=== PATIENT | female | born 1960 | race Caucasian/White ===

== ENCOUNTER 2024-01-18 05:54 | Day surgery (SDC) | payer OTHER ==
[~2024-01-18] VITALS: Ht 157.5 cm; Wt 83.1 kg
[2024-01-18] MEDS ORDERED: ALBUTEROL SULFATE 2.5 MG/0.5 ML NEB SOLUTION NEB ONE (05:55)
[2024-01-18] MEDS ORDERED: LIDOCAINE 4% 50 ML SOLUTION TP ONE (05:55)
[2024-01-18] MEDS ORDERED: LIDOCAINE 2% 11 ML JELLY TP ONE (05:55)
[2024-01-18] MEDS ORDERED: BENZOCAINE 20% 50 MCG/SPRAY 57 GM TP ONE (05:55)
[2024-01-18] MEDS ORDERED: SODIUM CHLORIDE 0.9% 0 ML ONE (07:04)
[2024-01-18] MEDS ORDERED: FentaNYL CITRATE PF 100 MCG/2 ML VIAL ONE (07:41)
[2024-01-18] MEDS ORDERED: MIDAZOLAM HCL 2 MG/2 ML VIAL ONE (07:42)
[2024-01-18 07:45] LABS: GLUCOMETER DEV NAME(LOC) SDS.; GLUCOSE,POINT OF CARE 95 MG/DL (70-110)
[2024-01-18] MEDS: SODIUM CHLORIDE 0.9% 1,000 ML IV ONE (08:46)
[2024-01-18 09:23] VITALS: PULSE 64; RESP 20; O2SAT 97
[2024-01-18] MEDS ORDERED: METF-1211 PO (09:31)
[2024-01-18] MEDS ORDERED: CARV3 PO (09:31)
[2024-01-18] MEDS ORDERED: MOME13HF11 IH (09:31)
[2024-01-18] MEDS ORDERED: MONT-35 PO (09:31)
[2024-01-18] MEDS ORDERED: FAMO20 PO (09:31)
[2024-01-18] MEDS ORDERED: FLUT12AE20 IH (09:31)
[2024-01-18] MEDS ORDERED: SIMV-261 PO (09:31)
[2024-01-18] MEDS ORDERED: ALBU18HF12 IH (09:31)
[2024-01-18] MEDS ORDERED: SEMA1PEN3 (09:31)
[2024-01-18] MEDS ORDERED: EMPA25TA3 PO (09:31)
[2024-01-18] MEDS ORDERED: LOSA-381 PO (09:31)
[2024-01-18] MEDS ORDERED: XALA2.5OS OU (09:31)
[2024-01-18] MEDS ORDERED: MethylPREDNISolone SOD SUCC 125 MG/2 ML VIAL ONE (10:06)
[2024-01-18] MEDS: MethylPREDNISolone SOD SUCC 125 MG/2 ML VIAL IVP ONE (10:29)
== END 2024-01-18 12:05 | disposition home or self-care (01) ==
LOC: SURGERY 05:54
PROVIDERS: ATTEND Internal Medicine Critical Care Medicine
DX: R05.3 Chronic cough (principal); R04.2 Hemoptysis; J38.4 Edema of larynx; B37.0 Candidal stomatitis; J98.09 Other diseases of bronchus, not elsewhere classified; J84.10 Pulmonary fibrosis, unspecified; J98.8 Other specified respiratory disorders; Z85.21 Personal history of malignant neoplasm of larynx
CPT/HCPCS: 31623; 82962; 87206; 87101; 87220; 87070; 88108; 31624; 94640; 71045; 87015; J3010; J2250; J2919; J7030; J7613; Z7610